=== PATIENT | male | born 1945 | race Caucasian/White ===

== ENCOUNTER 2018-07-27 09:55 | Inpatient (IN) | payer OTHER ==
[~2018-07-27] VITALS: Ht 172.7 cm; Wt 94.1 kg
[2018-07-27] VITALS (7 sets, daily range): BP systolic 128–146; BP diastolic 70–88
--- NOTE | ~2018-07-27 | EKG ---
[place], [place] ELECTROCARDIOGRAM REPORT NAME: ARELIS VARLEA UNIT #: [id number] ROOM: 408 DOCTOR: GUANAKITO DRAFT REPORT BIRTHDATE: [birth year] [facility] Test Date: 2018-07-27 Test Time: 16:12:37 Pat Name: ARELSI VARELA Department: Room: 408 Gender: M [employer] Supervisor: : 1945 Requested By: LILIANA SUAREZ Order Number: [id number] Reading MD: Joshua Nelson MD Measurements Intervals [place] Rate: 98 P: -41 [place]: 101 QRS: -71 QRSD: 156 T: 101 QT: 390 QTc: 499 Interpretive Statements [place] sensed,ventricular-paced complexes No further analysis attempted due to paced rhythm Compared to ECG 07/27/2018 12:56:25 No significant change Electronically Signed On 07-29-2018 7:39:16 PST by Joshua Nelson MD CM:EKGRPT:ELECTROCARDIOGRAM REPORT [id number] LILIANA CALABRESE DRAFT REPORT LILIANA SUAREZ MD
--- NOTE | ~2018-07-27 | EKG ---
[place], [place] ELECTROCARDIOGRAM REPORT NAME: ARELIS VARELA UNIT #: [id number] ROOM: 408 DOCTOR: GUANAKITO DRAFT REPORT BIRTHDATE: [birth year] [facility] Test Date: 2018-07-27 Test Time: 12:56:25 Pat Name: ARELIS VARELA Department: Room: 408 Gender: M Production Sorter: Ruby Llamas : 1945 Requested By: LILIANA SUAREZ Order Number: [id number] Reading MD: Belinda Redding MD Measurements Intervals [place] Rate: 85 P: 2 WV: 221 QRS: -71 QRSD: 156 T: 94 QT: 428 QTc: 509 Interpretive Statements Atrial-sensed ventricular-paced rhythm No further analysis attempted due to paced rhythm Electronically Signed On 07-27-2018 12:21:58 PST by Belinda Redding MD CM:EKGRPT:ELECTROCARDIOGRAM REPORT [id number] 1221 LILIANA SUAREZ MD EPIPHANY DRAFT REPORT LILIANA SUAREZ MD
--- NOTE | ~2018-07-27 | EKG ---
[place], [place] ELECTROCARDIOGRAM REPORT NAME: ARELIS VARELA UNIT #: [id number] ROOM: 408 DOCTOR: GUANAKITO DRAFT REPORT BIRTHDATE: [birth year] [facility] Test Date: 2018-07-27 Test Time: 09:57:07 Pat Name: ARELIS VARELA Department: Room: 408 Gender: M Station Helper: Ruby Llamas : 1945 Requested By: LILIANA SUAREZ Order Number: [id number] Reading MD: Belinda Redding MD Measurements Intervals [place] Rate: 116 P: -43 [place]: 105 QRS: -79 QRSD: 149 T: 98 QT: 418 QTc: 581 Interpretive Statements Ventricular-paced complexes No further analysis attempted due to paced rhythm Electronically Signed On 07-27-2018 12:21:26 PST by Belinda Redding MD CM:EKGRPT:ELECTROCARDIOGRAM REPORT [id number] 1221 LILIANA SUAREZ MD EPIPHANY DRAFT REPORT LILIANA SUAREZ MD
[~2018-07-27 09:55] MED LIST: LOPRESSOR50 MG PO
[2018-07-27 10:17] LABS: BASO # 0.1 10*3/uL (0.0-0.1); BASO % 1.2 % (0.0-1.0); EOS # 0.7 10*3/uL (0.0-0.4); EOS % 7.5 % (1.0-4.0); HEMATOCRIT 43.8 % (42.0-52.0); HEMOGLOBIN 14.8 g/dl (14.0-18.0); LYMPH # 1.3 10*3/uL (1.3-4.4); LYMPH % 13.6 % (27.0-41.0); MEAN CELL VOLUME 87.6 fl (80.0-94.0); MEAN CORPUSCULAR HGB 29.6 pg (27.0-31.0); MEAN CORPUSCULAR HGB CONC 33.8 g/dl (33.0-37.0); MEAN PLATELET VOLUME 9.7 fl (9.6-12.3); MONO # 0.9 10*3/uL (0.1-1.0); MONO % 9.4 % (3.0-9.0); NEUT # 6.2 10*3/uL (2.3-7.9); NEUT % 67.3 % (47.0-73.0); PLATELET COUNT AUTOMATED 199 10*3/uL (130-400); RED CELL DISTRI WIDTH 13.4 % (0-14.5); WHITE BLOOD COUNT 9.2 10*3/uL (4.8-10.8)
[2018-07-27 10:26] LABS: ACT PARTIAL THROMBO TIME 32.7 SECONDS (20.8-31.5); INTERNATIONAL NORM RATIO 2.1 (2.0-3.5)
[2018-07-27 10:28] LABS: BILIRUBIN NEGATIVE (NEGATIVE); BLOOD NEGATIVE (NEGATIVE); CLARITY CLEAR (CLEAR); COLOR YELLOW (YELLOW); GLUCOSE 2+ (NEGATIVE); KETONE NEGATIVE (NEGATIVE); LEUKO ESTERASE NEGATIVE (NEGATIVE); NITRITE NEGATIVE (NEGATIVE); SPECIFIC GRAVITY <= 1.005 (1.005-1.030); UROBILINOGEN 0.2 E.U./dl (0.2-1.0)
[2018-07-27 10:36] LABS: ALBUMIN 3.8 gm/dl (3.1-4.5); ALKALINE PHOSPHATASE 122 U/L (45-117); BUN 14 mg/dl (7-24); CHLORIDE 99 mmol/L (98-107); CREATININE 1.05 mg/dL (0.70-1.30); POTASSIUM 3.5 mmol/L (3.5-5.1); SGOT/AST 14 IU/L (3-35); SGPT/ALT 28 U/L (12-78); SODIUM 136 mmol/L (136-145); TOTAL PROTEIN 7.9 gm/dL (6.4-8.2)
[2018-07-27 10:38] LABS: TROPONIN I < 0.015 ng/ml (<0.045)
[2018-07-27 11:08] LABS: BACTERIA TRACE; RBC 0-2 rbc/hpf (0-2); WBC 0-2 wbc/hpf (0-5)
[2018-07-27] MEDS ORDERED: ACYCLOVIR200 MG PO (13:06)
[2018-07-27] MEDS ORDERED: LOPRESSOR100 M1 PO (13:06)
[2018-07-27] MEDS ORDERED: WARFARIN SOD5 MG PO (13:08)
[2018-07-27] MEDS ORDERED: SYMB160 INH (13:09)
[2018-07-27] MEDS ORDERED: AMLODIPINE BESY10 MG PO (13:09)
[2018-07-27] MEDS ORDERED: DOFETILIDE125 MCG PO (13:11)
[2018-07-27] MEDS ORDERED: ZESTRIL,PRINIVIL5 MG PO (13:12)
[2018-07-27] MEDS ORDERED: METFORMIN750 MG PO (13:14)
[2018-07-27] MEDS ORDERED: GLUCOTROL10 MG PO (13:15)
[2018-07-27] MEDS ORDERED: FLOVENT DISKUS50 MCG INH (13:16)
[2018-07-27] MEDS ORDERED: SUNMARK OMEPRAZ20 M1 PO (13:16)
[2018-07-27] MEDS ORDERED: VOLTAREN100 GM T (13:18)
[2018-07-27] MEDS ORDERED: LIDOCAINE5 GM T (13:19)
[2018-07-28] VITALS: BP 137/63
[2018-07-28 06:25] LABS: BASO # 0.1 10*3/uL (0.0-0.1); BASO % 1.1 % (0.0-1.0); EOS # 0.5 10*3/uL (0.0-0.4); EOS % 6.5 % (1.0-4.0); HEMATOCRIT 40.3 % (42.0-52.0); HEMOGLOBIN 13.1 g/dl (14.0-18.0); LYMPH # 0.9 10*3/uL (1.3-4.4); LYMPH % 11.2 % (27.0-41.0); MEAN CELL VOLUME 88.4 fl (80.0-94.0); MEAN CORPUSCULAR HGB 28.7 pg (27.0-31.0); MEAN CORPUSCULAR HGB CONC 32.5 g/dl (33.0-37.0); MONO # 0.8 10*3/uL (0.1-1.0); MONO % 9.6 % (3.0-9.0); NEUT # 5.6 10*3/uL (2.3-7.9); NEUT % 70.8 % (47.0-73.0); PLATELET COUNT AUTOMATED 164 10*3/uL (130-400); RED BLOOD COUNT 4.56 10*6/uL (4.50-5.90); RED CELL DISTRI WIDTH 13.4 % (0-14.5)
[2018-07-28 06:58] LABS: BUN 11 mg/dl (7-24); CHLORIDE 102 mmol/L (98-107); CHOLESTEROL 137 mg/dL (<200); HDL CHOLESTEROL 28 mg/dl (40-60); LDL CHOLESTEROL 76 mg/dL (9-159); PHOSPHOROUS 3.2 mg/dL (2.5-4.9); POTASSIUM 4.4 mmol/L (3.5-5.1); SODIUM 138 mmol/L (136-145); TRIGLYCERIDES 164 mg/dl (<150); VLDL CHOLESTEROL 33 mg/dL (6-40)
[2018-07-28 08:00] VITALS: BP 142/80
[2018-07-28 12:00] VITALS: BP 130/72
[2018-07-29 02:06] LABS: ADENOVIRUS Negative (Negative); INFLUENZA A Negative (Negative); INFLUENZA B Negative (Negative); METAPNEUMOVIRUS Negative (Negative); PARAINFLUENZA 1 Negative (Negative); PARAINFLUENZA 2 Negative (Negative); PARAINFLUENZA 3 Negative (Negative); RHINOVIRUS Negative (Negative); RSV A Negative (Negative); RSV B Negative (Negative)
== END 2018-07-28 19:49 | disposition home or self-care (01) | DRG 310 ==
LOC: ED 09:55 → EDHOLD 11:22 → 4E 11:22
PROVIDERS: Emergency Medicine; Internal Medicine; ADMIT Internal Medicine
PROC: 4B02XSZ Measurement of Cardiac Pacemaker, External Approach (ICD-10-PCS; principal; 2018-07-27)
DX: I48.91 Unspecified atrial fibrillation (principal); E66.09 Other obesity due to excess calories; I10 Essential (primary) hypertension; E78.00 Pure hypercholesterolemia, unspecified; E11.9 Type 2 diabetes mellitus without complications; K21.9 Gastro-esophageal reflux disease without esophagitis; J44.9 Chronic obstructive pulmonary disease, unspecified; Z95.0 Presence of cardiac pacemaker; Z68.31 Body mass index [BMI] 31.0-31.9, adult; Z79.899 Other long term (current) drug therapy; Z87.891 Personal history of nicotine dependence; Z82.49 Family history of ischemic heart disease and other diseases of the circulatory system; Z82.3 Family history of stroke; Z79.84 Long term (current) use of oral hypoglycemic drugs